=== PATIENT | male | born 1935 | race Caucasian/White ===

== ENCOUNTER 2017-12-02 16:47 | Emergency (ER) | payer MEDICARE, OTHER ==
[2016-04-20 07:25] VITALS: BMI 25.3
[~2017-12-02 16:47] MED LIST: ASPIRIN325 MG PO; BAYER CHEWABLE81 MG PO; BRILINTA90 MG PO; COLACE100 MG PO; CORDARONE200 MG PO; COUMADIN5 MG PO; DEPADE50 MG PO; DUONEB 2.5-0.5 M3 ML UPD; K-DUR20 MEQ PO; LASIX20 MG PO; LOSARTAN POTASS25 MG PO; MILK OF MAGNESI30 ML PO; MULTI-DAY VITAM1 TAB PO; NORCO 10/325 TA1 TA1 PO; PLAVIX75 MG PO; PROBENECID500 MG; PROBENECID500 MG PO; PROTONIX40 MG PO; SPIRIVA18 MCG INH; TOPROL XL25 MG PO; TOPROL XL50 MG PO; XANAX0.5 MG PO
== END 2017-12-02 20:10 | disposition home or self-care (01) ==
LOC: D.ER 16:47
DX: S43.401A Unspecified sprain of right shoulder joint, initial encounter (principal); X50.9XXA Other and unspecified overexertion or strenuous movements or postures, initial encounter; Y93.89 Activity, other specified; Y92.019 Unspecified place in single-family (private) house as the place of occurrence of the external cause; M25.511 Pain in right shoulder; I10 Essential (primary) hypertension; Z85.038 Personal history of other malignant neoplasm of large intestine; Z85.46 Personal history of malignant neoplasm of prostate

== ENCOUNTER 2018-08-14 14:11 | Inpatient (IN) | payer MEDICARE, OTHER ==
[~2018-08-14] VITALS: Ht 175.3 cm; Wt 77.3 kg
--- NOTE | ~2018-08-14 | MORECARE ---
CASE MANAGEMENT DISCHARGE SUMMARY PATIENT: GIOVANNY LACY UNIT: [id number] ADM DATE: 08/14/18 AGE: 82 : 31 SEX: M ROOM/BED: D.0698 AUTHOR: CHRISTI,OMARI PHYSICIAN: REFERRING PHYSICIAN: JESUS CINTRON MD DATE OF SERVICE: 08/18/18 Discharge Plan Patient Name: GIOVANNY LACY Facility: [facility]:[place] : 1935 Planned Disposition: Home Anticipated Discharge Date: 08/18/18 Discharge Date: 08/18/2018 Expected LOS: 4 Initial Reviewer: [email or web address] Initial Review Date: 08/18/2018 Generated: 08/18/18 6:24 pm Comments DCP- Discharge Planning Updated by [email or web address]: Danis Salter on 08/18/18 4:[address] Patient Name: GIOVANNY LACY Admission Status: ER Accout number: [id number] Admission Date: 08-14-2018 : 1935 Admission Diagnosis:DVTRCLI OF INTEST, PART UNSP, W/O PERF OR ABSCESS W/O B Attending: JESUS CINTORN Current LOS: 4 Anticipated DC Date: 08-18-2018 Planned Disposition: Home Primary Insurance: MEDICARE A & B Discharge Planning Comments: CM MET WITH PT IN ROOM TO DISCUSS DISCHARGE PLANNING AND NEEDS. 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 PT'S SON LIVES NEXT DOOR AND IS AVAILABLE TO ASSIST IF NEEDED. PT HAS PORTABLE OXYGEN FROM [employer] AND A PORTABLE OXYGEN CONCENTRATOR HE OBTAINED PRIVATELY. PT H ALSO HAS A NEBULIZER. PT HAS NO OUTSIDE SERVICES ASSISTING IN THE HOME. CM DISCUSSED AVAILABILITY OF HOME HEALTH, REHAB SERVICES AND MEDICAL EQUIPMENT. PT DENIES DISCHARGE NEEDS, REPORTS HIS SON WILL PICK HIM UP FOR DISCHARGE HOME. IMPORTANT MESSAGE FROM MEDICARE PROVIDED AND EXPLAINED. Credit Compliance Officer: Danis Salter DCPIA - Discharge Planning Initial Assessment Updated by [email or web address]: Danis Salter on 08/18/18 5:22 pm * Is the patient Alert and Oriented? Yes * How many steps to enter\exit or inside your home? NONE * PCP DR. FANG * Pharmacy [facility] ([email or web address] [place]) * Preadmission Environment Home with Family * ADLs Independent * Equipment Nebulizer Oxygen * Other Equipment HOME AND PORTABLE OXYGEN- PORTABLE CONCENTRATOR [employer] - MEDICAL EQUIPMENT PROVIDER * List name and contact numbers for known caregivers / representatives who currently or will assist patient after discharge: KAREEM LACY, SON, * Verbal permission to speak to the caregivers and representatives has been obtained from the patient. N/A * Community resources currently utilized None * Please name any agencies selected above. NONE * Additional services required to return to the preadmission environment? No * Can the patient safely return to the preadmission environment? Yes * Has this patient been hospitalized within the prior 30 days at any hospital? No Coverage Notice Reviewer: [email or web address] Micky Salter Notice Issued Date-Time: 08/18/2018 12:40 Notice Type: IM Discharge Notice Notice Delivered To: Patient Relationship to Patient: Blender Operator Name: Delivery Method: HAND - Hand Delivered Anna Marie Days: Prior Verbal Notification: Recipient Understood Notice: Yes Recipient Signature: Yes Med Rec Note Co-signed by Attending: Coverage Notice Comment: Patient Name: GIOVANNY LACY Page [id number] at 1724 All edits/amendments must be made on the electronic document DICTATION DATE: 08/18/181723 MANAGER DIGITAL AD OPERATIONS: CARA 08/18/181723 RPT#: [id number] DC DATE:08/18/18 STATUS: DIS IN [facility] [address] [place] [address] END OF REPORT
[2018-08-14 14:53] LABS: BASOPHILS 0.4 % (0-2); EOSINOPHILS 1.5 % (0-7); HEMATOCRIT 49.2 % (42.0-54.0); HEMOGLOBIN 16.5 g/dL (13.5-17.5); IMMATURE GRANULOCYTES 0.1 % (0-5); LYMPHOCYTES 19.8 % (15-50); MCH 30.9 pg (26.0-34.0); MCHC 33.5 g/dL (31.0-37.0); MCV 92.1 fL (80.0-100.0); MEAN PLATELET VOLUME 10.6 fL (7.4-10.4); MONOCYTES 9.6 % (2-11); NEUTROPHILS 68.6 % (40-80); PLATELET COUNT 160 10x3/uL (130-400); RBC 5.34 10x6/uL (4.20-6.10); RDW 14.2 % (11.5-14.5); WBC 7.2 10x3/uL (4.8-10.8)
[2018-08-14 15:10] LABS: ALBUMIN 3.3 g/dL (3.4-5.0); ANION GAP 10.7 mmol/L (8-16); BILIRUBIN - TOTAL 0.58 mg/dL (0.2-1.3); CALCIUM 8.6 mg/dL (8.5-10.1); CARBON DIOXIDE 32.1 mmol/L (21.0-32.0); CREATININE - SERUM 1.5 mg/dL (0.6-1.3); POTASSIUM - SERUM 4.8 mmol/L (3.5-5.1); PROTEIN - SERUM 6.7 g/dL (6.4-8.2)
[2018-08-14 15:17] LABS: APPEARANCE CLEAR (CLEAR); COLOR STRAW (YELLOW)
[2018-08-14 15:18] LABS: BILIRUBIN NEGATIVE (NEGATIVE); GLUCOSE NEGATIVE (NEGATIVE); KETONE NEGATIVE (NEGATIVE); NITRITE NEGATIVE (NEGATIVE); PROTEIN NEGATIVE (NEGATIVE); RED CELLS - URINE 0-5 /hpf (0-5); SPECIFIC GRAVITY 1.015 (1.005-1.020); UROBILINOGEN NORMAL (NORMAL); WHITE CELLS - URINE 0-5 /hpf (0-5)
[2018-08-14 15:19] LABS: BACTERIA FEW /hpf (NONE SEEN)
[2018-08-14 20:45] VITALS: BP 136/71
[2018-08-14 22:35] LABS: HEMATOCRIT 44.4 % (42.0-54.0)
[2018-08-15 00:25] VITALS: BP 124/73; BMI 25.1
[2018-08-15 04:00] VITALS: BP 130/70
[2018-08-15 07:07] LABS: BASOPHILS 0.4 % (0-2); HEMATOCRIT 40.9 % (42.0-54.0); HEMOGLOBIN 13.6 g/dL (13.5-17.5); IMMATURE GRANULOCYTES 0.2 % (0-5); LYMPHOCYTES 18.5 % (15-50); MCH 30.2 pg (26.0-34.0); MCHC 33.3 g/dL (31.0-37.0); MCV 90.9 fL (80.0-100.0); MEAN PLATELET VOLUME 10.7 fL (7.4-10.4); MONOCYTES 11.1 % (2-11); NEUTROPHILS 67.8 % (40-80); PLATELET COUNT 145 10x3/uL (130-400); RDW 14.2 % (11.5-14.5); WBC 5.4 10x3/uL (4.8-10.8)
[2018-08-15 07:12] LABS: ALBUMIN 2.6 g/dL (3.4-5.0); ANION GAP 11.1 mmol/L (8-16); BILIRUBIN - TOTAL 0.61 mg/dL (0.2-1.3); CALCIUM 8.1 mg/dL (8.5-10.1); CARBON DIOXIDE 30.6 mmol/L (21.0-32.0); CREATININE - SERUM 1.4 mg/dL (0.6-1.3); POTASSIUM - SERUM 4.7 mmol/L (3.5-5.1); PROTEIN - SERUM 5.4 g/dL (6.4-8.2)
[2018-08-15 08:34] VITALS: BP 136/64
[2018-08-15 08:56] LABS: APTT 34.6 SECONDS (22.8-39.4); INR 1.21 (0.85-1.17); PROTIME 14.8 SECONDS (11.6-15.0)
[2018-08-15 09:00] LABS: HEMATOCRIT 40.3 % (42.0-54.0); HEMOGLOBIN 13.2 g/dL (13.5-17.5)
[2018-08-15 09:01] LABS: HEMATOCRIT 39.6 % (42.0-54.0)
[2018-08-15 11:28] VITALS: BP 131/68
[2018-08-15 12:52] VITALS: Ht 175.3 cm; Wt 77.3 kg
[2018-08-15 16:09] VITALS: BP 132/64
[2018-08-15 18:53] LABS: CALC OSMOLALITY 287 mosm/kg (275-300); CALCIUM 7.8 mg/dL (8.5-10.1); CARBON DIOXIDE 27.2 mmol/L (21.0-32.0); CHLORIDE - SERUM 107 mmol/L (98-107); CKMB 1.2 U/L (0.0-3.6); CREATINE KINASE 39 UL (21-232); CREATININE - SERUM 1.7 mg/dL (0.6-1.3); SODIUM 141 mmol/L (136-145); TROPONIN-I 0.023 ng/mL (0.000-0.060); UREA NITROGEN 25 mg/dL (7-18); eGFR NON AFRICAN AMERICAN 41 mL/min (90-120)
[2018-08-15 18:54] LABS: GLUCOSE 146 mg/dL (74-106)
[2018-08-15 20:00] VITALS: BP 111/51
[2018-08-16] VITALS (12 sets, daily range): BP systolic 70–150; BP diastolic 40–71
[2018-08-16 01:03] LABS: HEMATOCRIT 29.7 % (42.0-54.0); HEMOGLOBIN 9.5 g/dL (13.5-17.5)
[2018-08-16 06:39] LABS: BASOPHILS 0.3 % (0-2); EOSINOPHILS 1.6 % (0-7); HEMOGLOBIN 9.4 g/dL (13.5-17.5); IMMATURE GRANULOCYTES 0.2 % (0-5); LYMPHOCYTES 18.3 % (15-50); MCH 29.9 pg (26.0-34.0); MCHC 32.4 g/dL (31.0-37.0); MCV 92.4 fL (80.0-100.0); MEAN PLATELET VOLUME 10.5 fL (7.4-10.4); MONOCYTES 9.2 % (2-11); NEUTROPHILS 70.4 % (40-80); PLATELET COUNT 144 10x3/uL (130-400); RDW 14.4 % (11.5-14.5); WBC 5.8 10x3/uL (4.8-10.8)
[2018-08-16 06:45] LABS: RBC 3.14 10x6/uL (4.20-6.10)
[2018-08-16 07:10] LABS: ALBUMIN 2.2 g/dL (3.4-5.0); ANION GAP 11.6 mmol/L (8-16); BILIRUBIN - TOTAL 0.43 mg/dL (0.2-1.3); CALCIUM 7.5 mg/dL (8.5-10.1); CARBON DIOXIDE 25.6 mmol/L (21.0-32.0); CREATININE - SERUM 1.4 mg/dL (0.6-1.3); MAGNESIUM - SERUM 1.6 mg/dL (1.8-2.4); POTASSIUM - SERUM 5.2 mmol/L (3.5-5.1); PROTEIN - SERUM 4.6 g/dL (6.4-8.2)
[2018-08-16 08:40] LABS: HEMOGLOBIN 9.4 g/dL (13.5-17.5)
[2018-08-16 23:58] LABS: HEMATOCRIT 31.2 % (42.0-54.0); HEMOGLOBIN 10.1 g/dL (13.5-17.5)
[2018-08-17] VITALS (12 sets, daily range): BP systolic 108–163; BP diastolic 41–67
[2018-08-17 05:52] LABS: BASOPHILS 0.5 % (0-2); EOSINOPHILS 3.4 % (0-7); HEMATOCRIT 32.2 % (42.0-54.0); HEMOGLOBIN 10.4 g/dL (13.5-17.5); IMMATURE GRANULOCYTES 0.2 % (0-5); LYMPHOCYTES 13.7 % (15-50); MCH 28.7 pg (26.0-34.0); MCHC 32.3 g/dL (31.0-37.0); MEAN PLATELET VOLUME 9.7 fL (7.4-10.4); MONOCYTES 9.8 % (2-11); NEUTROPHILS 72.4 % (40-80); PLATELET COUNT 128 10x3/uL (130-400); RBC 3.62 10x6/uL (4.20-6.10); RDW 15.5 % (11.5-14.5); WBC 6.1 10x3/uL (4.8-10.8)
[2018-08-17 06:24] LABS: ALBUMIN 2.3 g/dL (3.4-5.0); BILIRUBIN - TOTAL 0.58 mg/dL (0.2-1.3); CALCIUM 7.6 mg/dL (8.5-10.1); CARBON DIOXIDE 25.2 mmol/L (21.0-32.0); CREATININE - SERUM 1.2 mg/dL (0.6-1.3); MAGNESIUM - SERUM 1.5 mg/dL (1.8-2.4); PROTEIN - SERUM 4.7 g/dL (6.4-8.2)
[2018-08-17 06:27] LABS: ANION GAP 14.8 mmol/L (8-16)
[2018-08-17 10:55] LABS: HEMATOCRIT 32.6 % (42.0-54.0); HEMOGLOBIN 10.7 g/dL (13.5-17.5)
[2018-08-17 18:35] LABS: HEMATOCRIT 32.1 % (42.0-54.0); HEMOGLOBIN 10.7 g/dL (13.5-17.5)
[2018-08-18 00:30] VITALS: BP 137/58
[2018-08-18 04:30] VITALS: BP 147/67
[2018-08-18 06:06] LABS: BASOPHILS 0.3 % (0-2); EOSINOPHILS 3.4 % (0-7); HEMATOCRIT 29.7 % (42.0-54.0); HEMOGLOBIN 9.6 g/dL (13.5-17.5); IMMATURE GRANULOCYTES 0.2 % (0-5); LYMPHOCYTES 15.6 % (15-50); MCH 28.7 pg (26.0-34.0); MCHC 32.3 g/dL (31.0-37.0); MCV 88.9 fL (80.0-100.0); MEAN PLATELET VOLUME 10.2 fL (7.4-10.4); MONOCYTES 12.2 % (2-11); NEUTROPHILS 68.3 % (40-80); PLATELET COUNT 139 10x3/uL (130-400); RBC 3.34 10x6/uL (4.20-6.10); RDW 15.8 % (11.5-14.5); WBC 6.2 10x3/uL (4.8-10.8)
[2018-08-18 06:43] LABS: ALBUMIN 2.4 g/dL (3.4-5.0); ANION GAP 11.9 mmol/L (8-16); BILIRUBIN - TOTAL 0.25 mg/dL (0.2-1.3); CALCIUM 7.8 mg/dL (8.5-10.1); CARBON DIOXIDE 26.1 mmol/L (21.0-32.0); CREATININE - SERUM 1.3 mg/dL (0.6-1.3); MAGNESIUM - SERUM 1.7 mg/dL (1.8-2.4); PROTEIN - SERUM 4.7 g/dL (6.4-8.2)
[2018-08-18 08:24] VITALS: BP 138/86
[2018-08-18 10:59] VITALS: BP 142/77
[2018-08-18] MEDS ORDERED: LEVAQUIN750 MG PO (11:06)
[2018-08-18] MEDS ORDERED: FLAGYL500 MG PO (11:07)
== END 2018-08-18 13:32 | disposition home or self-care (01) | DRG 378 ==
LOC: D.ER 14:11 → D.M2 20:04 → D.EDHOLD 20:04 → D.M2 21:44
PROVIDERS: Family Medicine; Family Medicine Adult Medicine; Internal Medicine Gastroenterology
DX: K57.33 Diverticulitis of large intestine without perforation or abscess with bleeding (principal); D62 Acute posthemorrhagic anemia; J96.11 Chronic respiratory failure with hypoxia; N17.9 Acute kidney failure, unspecified; J44.9 Chronic obstructive pulmonary disease, unspecified; I25.10 Atherosclerotic heart disease of native coronary artery without angina pectoris; M10.9 Gout, unspecified; E83.42 Hypomagnesemia; Z86.73 Personal history of transient ischemic attack (TIA), and cerebral infarction without residual deficits